=== PATIENT | female | born 1985 | race African-American/Black ===

== ENCOUNTER 2021-10-31 18:24 | Emergency (ER) | payer OTHER ==
[2021-10-31 18:31] VITALS: BP 121/85; PULSE 88; TEMP 97.6; BMI 26.2
[2021-10-31] MEDS ORDERED: KETOROLAC TROMETHAMINE 30 MG/1 ML VIAL IM ONE (18:53)
[2021-10-31] MEDS ORDERED: KETOROLAC TROMETHAMINE 30 MG/1 ML VIAL ONE (18:58)
== END 2021-10-31 20:45 | disposition home or self-care (01) ==
LOC: JERFT 18:24
PROC: 3E023GC Introduction of Other Therapeutic Substance into Muscle, Percutaneous Approach (ICD-10-PCS; principal; 2021-10-31)
DX: M43.6 Torticollis (principal)
CPT/HCPCS: 99284-25